=== PATIENT | female | born 1955 ===

== ENCOUNTER 2020-08-05 13:44 | Inpatient (IN) | payer OTHER, SELFPAY ==
[2020-08-05] VITALS (24 sets, daily range): BP systolic 79–128; BP diastolic 42–94; PULSE 93–113; RESP 16–42; TEMP 36–37.1; O2SAT 94–100
--- NOTE | ~2020-08-05 | CT_ITS ---
EXAMINATION: CT brain wo con DATE: 08/05/2020 14:51 INDICATION: Altered mental status. Unresponsive. TECHNIQUE: Computed tomography (CT) of the head was performed without intravenous contrast. Sagittal and coronal reconstructions were performed. The mA was adjusted according to patient size. Iterative reconstruction technique was employed. The dose-length product was 1210.67 mGy-cm. COMPARISON: None FINDINGS: Evaluation mildly limited by streak artifact along the skull base on both the initial and repeat at i mages. No acute intracranial hemorrhage, acute infarction or abnormal extra axial fluid collection. T here is mild scattered white matter hypoattenuation consistent with chronic small vessel ischemic dis ease. Ventricles are normal and symmetric. No mass/mass effect. Mild mucosal thickening in the bilate ral maxillary and ethmoid sinuses with likely mucous retention cyst in the left maxillary sinus. The orbits and mastoid air cells are normal. IMPRESSION: 1. No acute intracranial process. Evaluation is mildly limited at the level of the skull base due to streak artifact. 2. Mild scattered white matter hypoattenuation consistent with chronic small vessel ischemic disease. Reviewed, dictated and finalized at location A. ATOLOGICAL SURGEON IMPRESSION: 1. No acute intracranial process. Evaluation is mildly limited at the level of the skull base due to streak artifact. 2. Mild scattered white matter hypoattenuation consistent with chronic small ve ssel ischemic disease.
--- NOTE | ~2020-08-05 | XR_ITS ---
EXAMINATION: XR chest PICC line DATE: 08/06/2020 20:32 INDICATION: Central line placement. TECHNIQUE: A single frontal view of the chest was obtained. COMPARISON: Chest single view 08/05/2020, chest CT 08/05/2020 FINDINGS: The patient is rotated to her left. There is a diffuse interstitial pattern in the lungs, c onsistent with mild pulmonary edema. There is a large loculated left pleural effusion. There are airs pace opacities in all left lung zones. No pneumothorax. The heart size is normal. A left upper extrem ity peripherally inserted central venous catheter (PICC) is seen with tip at the superior cavoatrial junction. A TIPS is noted. IMPRESSION: 1. PICC tip at the superior cavoatrial junction. 2. Mild pulmonary edema. 3. Large loculated left pleural effusion. 4. Worsened airspace opacities in left lung, consistent with atelectasis versus pneumonia. Reviewed, dictated and finalized at location A. GER DENTAL
--- NOTE | ~2020-08-05 | XR_ITS ---
EXAMINATION: [id number] DATE: 08/08/2020 17:10 INDICATION: Status post thoracentesis TECHNIQUE: frontal view of the chest was obtained. COMPARISON: Chest radiograph dated 08/07/2020 FINDINGS: Left upper extremity peripherally inserted central venous catheter (PICC) which extends from the left brachiocephalic vein into the right brachiocephalic vein with distal tip near the confluence of the right internal jugular and subclavian veins. There is a transjugular intrahepatic hepatic portosystem ic shunt (TIPS) in expected position projecting over the medial side of the right hemidiaphragm. Embo lization coils project over the epigastric region. Significant decrease in size of a now small loculated left pleural effusion with improved aeration of the left lung in the upper and lower lung zones. There is persistent consolidation in the left midlu ng zone. Perihilar and lower lung predominant groundglass opacities and increased interstitial patter n in the right lung consistent with mild to moderate pulmonary edema. No pneumothorax or right-sided pleural effusion. Heart size is normal. IMPRESSION: 1. Decreased size of a now small left pleural effusion with no pneumothorax post thoracentesis. 2. Persistent consolidation in the left midlung zone which could represent atelectasis or pneumonia. 3. Perihilar and lower lung predominant opacities in the right lung most likely mild to moderate ulna r edema with differential including pneumonia. 4. Distal tip of a left upper extremity PICC line remains in the right brachiocephalic vein. Could co nsider rapid saline flush to attempt to reposition the catheter tip in the superior vena cava. Reviewed, dictated and finalized at location A. CUTTER IMPRESSION: 1. Decreased size of a now small left pleural effusion with no pneumothorax pos t thoracentesis. 2. Persistent consolidation in the left midlung zone which could represent atel ectasis or pneumonia. 3. Perihilar and lower lung predominant opacities in the right lung most likely mild to moderate ulnar edema with differential including pneumonia. 4. Distal tip of a left upper extremity PICC line remains in the right brachioc ephalic vein. Could consider rapid saline flush to attempt to reposition the ca theter tip in the superior vena cava.
--- NOTE | ~2020-08-05 | US_ITS ---
EXAMINATION: US paracentesis abd w/image DATE: 08/07/2020 15:45 INDICATION: Ascites. TECHNIQUE: The skin was prepped and draped in sterile fashion. Under ultrasound guidance, 1% lidocain e was used for local anesthesia in right lower quadrant of the abdomen. The patient was combative and grabbed at the needle and removed the drape. FINDINGS: Ultrasound images demonstrate a large volume of ascites IMPRESSION: 1. Large volume of ascites. The paracentesis was aborted due to the patient's combativeness. Reviewed, dictated and finalized at location A. NT SERVICES ACCOUNT MANAGER IMPRESSION: 1. Large volume of ascites. The paracentesis was aborted due to the patient's c ombativeness.
--- NOTE | ~2020-08-05 | US_ITS ---
EXAMINATION: US thoracentesis DATE: 08/08/2020 17:10 INDICATION: pleural effusion TECHNIQUE: The skin was prepped and draped in sterile fashion. 1% lidocaine was used for local anesth esia. Under ultrasound guidance, a 5 Fr catheter with trochar was advanced into the left pleural effu beny. Fluid was aspirated. The catheter was removed, and a dressing was applied. There were no immedi ate complications. FINDINGS: Ultrasound images demonstrate a left pleural effusion and the catheter within the fluid. IMPRESSION: 1. Successful ultrasound-guided thoracentesis yielding 500 mL of sean-colored fluid. Reviewed, dictated and finalized at location A. ION WORKER
--- NOTE | ~2020-08-05 | XR_ITS ---
EXAMINATION: XR chest 1V portable DATE: 08/05/2020 14:24 INDICATION: Transient alteration of awareness TECHNIQUE: frontal view of the chest was obtained. COMPARISON: None FINDINGS: There is opacification of the upper half of the left hemithorax with blunting at the costophrenic ang le and additional opacities at the periphery of the left lower lung zone where there is residual aera montserrat portions of left lung. The left mediastinal and heart borders are obscured. No midline shift of t he trachea. Right lung remains clear with no focal airspace opacities, pulmonary edema, pleural effus ion or pneumothorax. IMPRESSION: 1. Extensive opacification of the left hemithorax with some residual aerated lung in the left lower l milton zone. The distribution would be unusual to be accounted for solely by a pleural effusion and rais es concern for mass or pneumonia in the opacified left upper lung and with at least a small and poten tially larger associated left pleural effusion. Consider contrast-enhanced chest CT for further evalu ation and diagnostic thoracentesis. Reviewed, dictated and finalized at location A. ENTARY SCHOOL READING TEACHER IMPRESSION: 1. Extensive opacification of the left hemithorax with some residual aerated joe ng in the left lower lung zone. The distribution would be unusual to be account ed for solely by a pleural effusion and raises concern for mass or pneumonia in the opacified left upper lung and with at least a small and potentially larger associated left pleural effusion. Consider contrast-enhanced chest CT for furt her evaluation and diagnostic thoracentesis.
--- NOTE | ~2020-08-05 | XR_ITS ---
XR chest 1V portable DATE: 08/07/2020 06:17 INDICATION: Pleural effusion TECHNIQUE: Portable AP chest on 08/07/2020 at 0606 hours COMPARISON: Portable AP chest on 07/29/2020 at 2030 hours FINDINGS: There is nearly complete opacification of the left hemithorax and mild leftward shift of th e heart and mediastinum. There is right pulmonary vascular congestion and redistribution. There is diffuse interstitial promi nence of the right lung, which may be secondary to interstitial edema or pneumonitis. No right pleur al effusion. TIPS is noted. Left upper extremity PIC catheter in right brachiocephalic vein. Diffuse osteopenia. IMPRESSION: Persistent nearly complete opacification of left hemithorax with leftward shift of heart and mediastinum consistent with left lung atelectasis Diffuse interstitial infiltrate throughout the right lung, mildly improved since 07/29/2020 Reviewed, dictated and finalized at location A. NOCHEMIST IMPRESSION: Persistent nearly complete opacification of left hemithorax with le ftward shift of heart and mediastinum consistent with left lung atelectasis Diffuse interstitial infiltrate throughout the right lung, mildly improved sin e 07/29/2020
--- NOTE | ~2020-08-05 | CT_ITS ---
EXAMINATION:CT chest w con DATE: 08/05/2020 15:54 INDICATION: Pleural effusion. Altered mental status. TECHNIQUE: Computed tomography (CT) of the chest was performed with 75 mL Omnipaque 350 intravenous c ontrast. Automated exposure control and iterative reconstruction technique were employed. The dose-le ngth product (DLP) was 482.87 mGy-cm. COMPARISON: None. FINDINGS: Motion artifact is noted. There is mild emphysema. There are patchy groundglass opacities i n right upper lobe. There is smooth septal thickening in the lungs, consistent with mild pulmonary ed christiano. There is a small right pleural effusion. There is a large loculated left pleural effusion. There is passive atelectasis throughout left upper lobe and involving much of left lower lobe. The heart s ize is normal. The central pulmonary arteries are enlarged, consistent with pulmonary arterial hypert ension. There is a ruptured right breast implant. There is a left breast implant with intracapsular r upture. The liver demonstrates surface nodularity, consistent with cirrhosis. There is a TIPS in expe cted position. Calcifications in the liver and spleen are consistent with old granulomatous disease. There are embolization coils in the area of the left gastric artery. There is a gallstone in the gall bladder, which is normal in size. 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 There is a large volume of ascite s. There is widespread body wall edema. There is a catheter in the right external jugular vein. There is soft tissue gas in the right neck, likely from the IV placement. There is severe cervical spondyl osis and mild thoracic spondylosis. IMPRESSION: 1. Mild pulmonary edema. Groundglass opacities in right lung upper lobe may be pulmonary edema or pne umonia. 2. Small right pleural effusion and large loculated left pleural effusion. 3. Mild emphysema. 4. Cirrhosis of the liver. 5. Large volume of ascites. Reviewed, dictated and finalized at location A. EATION COUNSELOR IMPRESSION: 1. Mild pulmonary edema. Groundglass opacities in right lung upper lobe may be pulmonary edema or pneumonia. 2. Small right pleural effusion and large loculated left pleural effusion. 3. Mild emphysema. 4. Cirrhosis of the liver. 5. Large volume of ascites.
--- NOTE | ~2020-08-05 | US_ITS ---
EXAMINATION: US paracentesis abd w/image DATE: 08/08/2020 17:07 INDICATION: Ascites. TECHNIQUE: The skin was prepped and draped in sterile fashion. 1% lidocaine was used for local anesth esia. Under ultrasound guidance, a 5 Fr catheter with trochar was advanced into the ascites in the ri [facility] lower quadrant. Fluid was aspirated. The catheter was removed, and a dressing was applied. There were no immediate complications. FINDINGS: Ultrasound images demonstrate ascites and the catheter within the fluid. IMPRESSION: 1. Successful ultrasound-guided paracentesis yielding 3100 mL of sean-colored fluid. Reviewed, dictated and finalized at location A. PREPARATION SUPERVISOR
--- NOTE | 2020-08-05 13:36 | ED.AMS ---
HPI - Altered Mental Status General Chief Complaint: Altered Mental Status Stated Complaint: UNRESPONSIVE,GURGLING Source: EMS Mode of arrival: EMS Limitations: clinical condition History of Present Illness HPI narrative: Patient is a 64-year-old female with a history of cirrhosis who presents via EMS for altered mental status. Apparently, patient family found her unresponsive at home, thus EMS was called. She was noted to have gurgling respirations, hypotensive in route. An EJ was placed, patient was given a 1 L fluid bolus with minimal improvement in her blood pressure. No focal deficits, however patient is not awake, alert or oriented. She has anasarca throughout, she has abdominal ascites. Bedside glucose at our facility is 36. History cannot be obtained due to patient being unresponsive. Related Data Home Medications Medication Instructions Recorded Confirmed Unable to Obtain Home Medications 08/05/20 08/05/20 Allergies Allergy/AdvReac Type Severity Reaction Status Date / Time Unable to Assess Allergy Verified 08/05/20 15:36 Review of Systems Review of Systems: ROS unobtainable: Yes unobtainable due to mental status PMFSH Past Medical History Medical History (Updated 08/05/20 @ 17:22 by Lubna Holbrook MD) Cirrhosis Hepatitis C Surgical History Surgical History (Updated 08/05/20 @ 15:57 by Lubna Holbrook MD) H/O resection of liver Exam Narrative: Exam Narrative: GENERAL: Eyes are intermittently open, not following commands HEAD: Normocephalic, atraumatic. EYES: 2+ PERRLA and EOMI. ENT: Nares clear, no rhinorrhea or epistaxis. Mucous membranes dry. NECK: Supple. CHEST: Tachypneic, gurgling respirations, crackles bilaterally HEART: Tachycardic rate, sinus rhythm ABDOMEN: Distended with fluid wave EXTREMITIES: Normal range of motion. No edema. SKIN: Anasarca throughout NEURO: GCS 9-10. Moving all extremities spontaneously. No focal deficits. Strength is 5 out of 5 in the upper and lower extremities bilaterally. Not able to follow commands. Able to state her name. Course Vital Signs Vital signs: Vital Signs Temperature 36.9 C 08/05/20 13:39 Pulse Rate 113 H 08/05/20 13:39 Respiratory Rate 36 H 08/05/20 13:39 Blood Pressure 79/47 L 08/05/20 13:39 Pulse Oximetry 94 08/05/20 13:39 Temperature 36.9 C 08/05/20 13:39 Pulse Rate 100 08/05/20 17:31 Respiratory Rate 40 H 08/05/20 17:31 Blood Pressure 92/58 L 08/05/20 17:31 Pulse Oximetry 97 08/05/20 17:31 MDM - Altered Mental Status MDM Narrative Medical decision making narrative: Patient presented for evaluation of altered mental status, decreased responsiveness. The time of assessment, patient is hypotensive, tachycardic, tachypneic, hypoxic. Patient noted to be hypoglycemic, thus IV was placed, and patient was given IV dextrose amp. Repeat glucose had normalized. Concern for sepsis, patient was given a 30 mL/kg fluid bolus, started on broad-spectrum antibiotics. Patient is protecting her airway, hypoxia improved with patient on 2 L via nasal cannula. Hypotension improved after fluid bolus. Laboratory results notable for numerous abnormalities. Labs consistent with sepsis with significant leukocytosis and lactic acidosis. Patient is anemic. No thrombocytopenia. Patient is coagulopathic with INR 2.0. She has acute kidney injury. No UTI. No acute intracranial abnormalities. Chest x-ray concerning for left-sided pneumonia, pleural effusion, CT scan consistent with what seems to be pneumonia and loculated pleural effusion. I called over to [facility] after speaking with numerous family members regarding the patient's history of medical problems. I talked to the hepatic fellow at [facility], patient's INR is nearly at baseline. Her hemoglobin is typically 7.5-8 per last lab draw at their facility. She usually gets therapeutic paracentesis is at that facility, but h
--- NOTE | 2020-08-05 13:44 | ECG_ITS ---
Measurements Intervals [place] Rate: 110 P: 99 NE: 160 QRS: 104 QRSD: 72 T: -4 QT: 327 QTc: 443 Interpretive Statements SINUS TACHYCARDIA ARM LEADS REVERSED LOW VOLTAGE- PRECORDIAL LEADS ANTEROSEPTAL INFARCT, AGE INDETERMINATE BORDERLINE ST-T WAVE ABNORMALITY- INFERIOR LEADS BASELINE ARTIFACT- III, AVL, V1-V3 ABNORMAL ECG Electronically Signed On 08-08-2020 12:05:47 MANAGER AEROSPACE by Girish Barron D.O.
[2020-08-05] MEDS: DEXTROSE 50% 25 GM/50 ML SYRINGE (13:45)
[2020-08-05] MEDS: DEXTROSE 10% 500 ML 999 ML (14:04)
[2020-08-05] MEDS: SODIUM CHLORIDE 0.9% IV 1,000 ML 999 ML IV CONT (14:07)
[2020-08-05 14:17] LABS: Glucose Point of Care 175 (65-105)
[2020-08-05] MEDS: GLUCAGON FOR INJ 1 MG VIAL IM (14:26)
[2020-08-05] MEDS: THIAMINE HCL 200 MG/2 ML VIAL 100 MG IV PUSH (14:28)
[2020-08-05 14:29] LABS: Base Excess ABG -8.4 mEq/l (+/-2.0); Fractional Inspired Oxygen 30 %; HCO3 ABG 16.6 mEq/l (22.0-26.0); Oxygen Content ABG 10.1 %vol (16.0-22.0); Oxygen Saturation ABG 95.4 % (95.0-100.0); Oxyhemoglobin 93.1 % THb (90.0-100.0); PCO2 ABG 32.3 mmHg (35.0-45.0)
[2020-08-05] MEDS: NALOXONE HCL INJ 2 MG/2 ML AMP IV PUSH (14:29)
[2020-08-05 14:31] LABS: Device NASAL CANNULA; Liters per Minute 2.5 LPM; Site Drawn LEFT BRACHIAL; Total Hemoglobin 7.6 g/dL (12.0-18.0)
[2020-08-05 14:33] LABS: Hematocrit 23.1 % (37.0-47.0); Hemoglobin 7.4 g/dL (12.0-15.0); Platelet Count Result 174 k/mm3 (150-375); Red Blood Count 2.31 M/mm3 (4.2-5.4); Red Cell Distribution Width 19.9 % (11.5-14.5); White Blood Count 28.4 K/mm3 (4.5-10.0)
[2020-08-05 14:39] LABS: Prothrombin Time 23.2 Seconds (11.1-14.7)
[2020-08-05 14:40] LABS: Partial Thromboplastin Time 36.9 SECONDS (22.3-36.8)
[2020-08-05 14:41] LABS: Acetaminophen < 10 ug/mL (10-30); Ammonia 21 umol/L (9-30); Ethanol < 10 mg/dL (<10); Salicylate < 1.0 mg/dL (2-20)
[2020-08-05 14:42] LABS: Lactic Acid Reflex 6.6 mmol/L (0.7-2.1); Potassium 3.8 mmol/L (3.4-5.0)
[2020-08-05 14:44] LABS: Band Neutrophils Percent 2 % (0-6); Hypochromasia 2+ (NORMAL); Lymphocytes Absolute Manual 0.28 K/mm3 (1.1-4.5); Monocytes Absolute Manual 3.69 K/mm3 (0.1-0.90); Monocytes Percent Manual 13 % (3-9); Neutrophils Absolute Manual 24.42 K/mm3 (1.7-7.2); Neutrophils Percent Manual 84 % (46-73); Platelet Estimate Adequate (Adequate); Total Cells Counted 100
[2020-08-05 14:45] LABS: Alkaline Phosphatase 85 U/L (38-126); Anion Gap 12 mmol/L (8-16); Aspartate Amino Transferase 48 U/L (14-36); Bilirubin,Total 1.7 mg/dL (0.2-1.3); Blood Urea Nitrogen 27 mg/dL (7-17); Calcium 7.3 mg/dL (8.4-10.2); Carbon Dioxide 18 mmol/L (22-30); Chloride 103 mmol/L (98-107); Estimated Glomerular Filt Rate 30; Glucose 43 mg/dL (65-105); Sodium 133 mmol/L (137-145)
--- NOTE | 2020-08-05 14:45 | PC.NURSE ---
Pt to CT via stretcher. Pt opens eyes to her name but otherwise is nonresponsive.
[2020-08-05 14:51] LABS: Alanine Aminotransferase 26 U/L (4-35)
[2020-08-05 15:25] LABS: Glucose Point of Care 181 (65-105)
--- NOTE | 2020-08-05 15:29 | PC.NURSE ---
Called lab to add on BNP
--- NOTE | 2020-08-05 15:32 | PC.NURSE ---
Pt to CT via stetcher for CTA. Pt making spontaneous movements of extremities, occasionally yelling out unintelligible words. Attempt to redirect patient.
[2020-08-05 15:43] LABS: Add Urine Microscopic? YES; Appearance Urine Clear (Clear); Bacteria Urine Trace /hpf; Bilirubin Urine Negative (Negative); Blood Urine Negative (Negative); Color Urine Yellow (Yellow); Glucose Urine UA Negative (Negative); Ketones Urine Negative (Negative); Leukocyte Esterase Ur Negative LEU/UL (Negative); Mucus Urine Rare /lpf; Nitrate Urine Negative (Negative); Protein Urine Negative (Negative); RBC Urine 0-2 /hpf (0-2); Specific Grav Ur 1.018 (1.001-1.035); Squamous Epithelial Cell Urine Occasional /hpf (Few); WBC Urine 0-3 /hpf
[2020-08-05 15:48] LABS: NT Pro B Type Natriuretic Pept 5600 PG/ML (5-100)
[2020-08-05 15:57] LABS: Amphetamine Screen Urine Negative (Negative); Barbiturate Screen Urine Negative (Negative); Benzodiazepines Screen Urine Negative (Negative); Cannabinoid Screen Urine Negative (Negative); Cocaine Screen Urine Negative (Negative); Methadone Screen Urine Negative (Negative); Opiate Screen Urine Negative (Negative); Phencyclidine Screen Urine Negative (Negative)
--- NOTE | 2020-08-05 16:30 | PM.IMHP ---
H&P: HPI History of Present Illness Date/Time: 08/05/20 16:30. The patient was seen and evaluated in the emergency department. Chief complaint: Unresponsive. Narrative: Venancio Li is a 64-year-old female who presented to the emergency department earlier today via EMS from a local residence after she was found unresponsive. Unfortunately, the patient has not ever been seen at this facility before and receives all of her care elsewhere. I have been unable to get a hold of any family members for information and as such all of the following is obtained via a review of her electronic medical records as well as discussions with the nursing staff. According to the triage note, the patient was found unresponsive and ?gurgling? just prior to arrival. She was hypoglycemic and hypotensive in the EDl with concerns for sepsis, etiology of which is not entirely clear at this time. Blood pressures have remained stable with no need for vasopressors at this time. She is alert at the time my evaluation but just grunts when asked questions. She does not follow commands. Review of Systems Review of Systems: Narrative: A review of systems is unable to be obtained given her current clinical condition as detailed above. [facility] Past Medical History Medical History (Updated 08/05/20 @ 20:16 by Osiris Nielsen PA-C) Cirrhosis Hepatitis C Surgical History Surgical History (Updated 08/05/20 @ 20:10 by Osiris Nielsen PA-C) History of resection of liver Family History Family History (Updated 08/05/20 @ 20:10 by Osiris Nielsen PA-C) Other Unknown family medical history Social History Social History (Updated 08/05/20 @ 20:11 by Osiris Nielsen PA-C) Social History: The patient has a [place] address. No emergency contact information is in the chart. Meds Home Medications and Allergies Home Medications Medication Instructions Recorded Confirmed Type Unable to Obtain Home Medications 08/05/20 08/05/20 History Allergies Allergy/AdvReac Type Severity Reaction Status Date / Time Unable to Assess Allergy Verified 08/05/20 15:36 Vital Signs Vital Signs - 24 hr 08/05/20 13:39 08/05/20 13:45 08/05/20 14:31 Temperature 98.5 F Pulse Rate 113 H 113 H 111 H Respiratory Rate 36 H 42 H 36 H Blood Pressure 79/47 L 97/59 L Pulse Oximetry 94 94 97 08/05/20 15:08 08/05/20 15:20 08/05/20 15:48 Temperature Pulse Rate 107 H 111 H 105 H Respiratory Rate 36 H 40 H 35 H Blood Pressure 102/59 L Pulse Oximetry 97 98 08/05/20 16:00 08/05/20 16:12 08/05/20 16:15 Temperature Pulse Rate 104 H 102 H Respiratory Rate 32 H 24 H Blood Pressure 128/94 H Pulse Oximetry 94 99 08/05/20 16:16 08/05/20 16:35 08/05/20 16:46 Temperature Pulse Rate 102 H 103 H 100 Respiratory Rate 26 H 35 H 33 H Blood Pressure 101/57 L 92/60 L Pulse Oximetry 94 98 08/05/20 16:51 08/05/20 17:01 08/05/20 17:17 Temperature Pulse Rate 101 H 101 H 100 Respiratory Rate 30 H 34 H 25 H Blood Pressure 84/58 L 94/68 L Pulse Oximetry 97 98 08/05/20 17:31 08/05/20 19:42 Temperature Pulse Rate 100 96 Respiratory Rate 40 H 16 Blood Pressure 92/58 L 113/62 Pulse Oximetry 97 100 Exam Narrative: Exam Narrative: General: Acutely ill-appearing female supine in bed. Weight: 74.7 kg. BMI: 20.3. HEENT: Pupils are 3 mm and are sluggishly reactive. Sclerae anicteric. Conjunctiva mildly injected. Oral mucosa appears dry. Oral exam not performed she would not open her mouth. Neck: Supple. No nuchal rigidity. No obvious JVD or bruits however exam is difficult due to the patient's positioning and lack of cooperation. Respiratory: Mildly tachypneic. Audible wheezes with significantly diminished breath sounds throughout the left lung field. Cardiovascular: Regular rate and rhythm with S1-S2. No obvious murmur but difficult to auscultate given over shadowing lung sounds. Gastrointestinal:
[2020-08-05 17:25] LABS: Reflex Lactic Acid Yes or No Add Lactic
--- NOTE | 2020-08-05 17:38 | PC.NURSE ---
Pt's son arrives, updated on patient condition. To bedside. Pt appears to look at patient but doesn't appear to focus and does not seem to recognize him.
[2020-08-05] MEDS: ALBUMIN HUMAN 25% 25 GM/100 ML 100 ML IVPB (17:42)
--- NOTE | 2020-08-05 18:36 | PC.NURSE ---
[address] per Dr. Gonzalez and Dr. Holbrook for patient's thoracentesis.
--- NOTE | 2020-08-05 19:10 | PC.NURSE ---
Multiple staff at bedside to attempt to collect lactic acid and verification tube, all unsuccessful. Note skin tears and skin leaking under blood pressure cuff to left wrist. Moved to pt's right wrist.
[2020-08-05 19:45] LABS: Glucose Point of Care 106 (65-105)
[2020-08-05 20:04] LABS: Lactic Acid 5.3 mmol/L (0.7-2.1)
[2020-08-05 20:16] LABS: Troponin I 0.185 ng/mL (0.000-0.034)
[2020-08-05 21:12] LABS: Anion Gap 10 mmol/L (8-16); Blood Urea Nitrogen 29 mg/dL (7-17); Carbon Dioxide 18 mmol/L (22-30); Chloride 103 mmol/L (98-107); Creatine Kinase 509 U/L (30-135); Estimated CRCL calculation 34 ml/min; Estimated Glomerular Filt Rate 35; Glucose 121 mg/dL (65-105); Sodium 131 mmol/L (137-145)
[2020-08-05] MEDS: metroNIDAZOLE 500 MG/ISO 100ML 500 MG/100 ML BAG 100 MG IVPB (21:36)
[2020-08-05] MEDS: TUBING, BLOOD PLUM PUMP TUBING 1 EACH XX (21:37)
[2020-08-05 22:24] LABS: Free T4 Free Thyroxine Reflex 1.54 ng/dL (0.78-2.19)
[2020-08-05 23:16] LABS: Total Triiodothyronine (T3) 0.49 NG/ML (0.97-1.69)
[2020-08-05 23:21] LABS: Glucose Point of Care 101 (65-105)
[2020-08-06] VITALS (16 sets, daily range): BP systolic 84–150; BP diastolic 44–77; PULSE 89–100; RESP 18–33; TEMP 36–36.9; O2SAT 94–100
[2020-08-06 00:21] LABS: Troponin I 0.148 ng/mL (0.000-0.034)
[2020-08-06 01:35] LABS: Glucose Point of Care 96 (65-105)
--- NOTE | 2020-08-06 01:52 | ADMGEN ---
This patient, Venancio Li, was admitted to IMU Room 231-01 at 0055. Patient/family oriented to hospital policies and general routines including ID bracelet, bed and alarms, visiting hours, pain management, procedures, bathroom and other care routines, personal items, smoking policy, room service/diet, and visiting hours. Information on how to activate the Rapid Response Team has been discussed. Patient/Family are encouraged to report perceived risks to care and to ask questions if they do not understand what they are told or what they should do.
[2020-08-06 06:57] LABS: Glucose Point of Care 77 (65-105)
[2020-08-06 07:17] LABS: Prothrombin Time 23.6 Seconds (11.1-14.7)
[2020-08-06 07:18] LABS: Basophils Absolute Auto 0.1 K/mm3 (0.0-0.1); Basophils Percent Auto 0.2 % (0.2-1.2); Immature Granulocyte Percent A 2.5 % (0-0.5); Lymphocytes Absolute Auto 0.51 K/mm3 (0.9-3.2); Lymphocytes Percent Auto 1.6 % (18.3-44.2); Mean Corpuscular HGB Conc 31.4 g/dl (32-36); Mean Corpuscular Hemoglobin 31.3 pg (26-34); Mean Corpuscular Volume 99.5 fl (80-100); Mean Platelet Volume 9.3 fl (7.4-10.4); Monocytes Absolute Auto 2.6 K/mm3 (0.1-0.6); Monocytes Percent Auto 8.3 % (2.6-8.5); Neutrophils Absolute Auto 27.6 K/mm3 (1.3-6.7); Neutrophils Percent Auto 87.4 % (45.5-73.1); Partial Thromboplastin Time 38.6 SECONDS (22.3-36.8); Platelet Count Result 164 k/mm3 (150-375); Red Blood Count 2.08 M/mm3 (4.2-5.4); Red Cell Distribution Width 19.7 % (11.5-14.5); White Blood Count 31.6 K/mm3 (4.5-10.0)
[2020-08-06 07:25] LABS: Lactic Acid Reflex 3.4 mmol/L (0.7-2.1)
[2020-08-06 07:27] LABS: Alanine Aminotransferase 31 U/L (4-35); Albumin Level 2.4 g/dL (3.5-5.1); Alkaline Phosphatase 77 U/L (38-126); Anion Gap 9 mmol/L (8-16); Aspartate Amino Transferase 95 U/L (14-36); Bilirubin,Total 1.7 mg/dL (0.2-1.3); Blood Urea Nitrogen 31 mg/dL (7-17); Calcium 7.4 mg/dL (8.4-10.2); Carbon Dioxide 20 mmol/L (22-30); Chloride 104 mmol/L (98-107); Estimated CRCL calculation 34 ml/min; Estimated Glomerular Filt Rate 35; Glucose 77 mg/dL (65-105); Magnesium 1.7 mg/dL (1.6-2.3); Phosphorus 4.5 mg/dL (2.5-4.5); Potassium 4.2 mmol/L (3.4-5.0); Sodium 133 mmol/L (137-145)
--- NOTE | 2020-08-06 08:23 | WPDCNINT ---
Assessment and Plan Assessment and plan (1) Septic shock: Code(s): A41.9 - Sepsis, unspecified organism; R65.21 - Severe sepsis with septic shock Status: Acute Assessment and Plan: Due to pneumonia (cannot rule out empyema) and or peritonitis. Blood cultures pending. Given presence of pneumonia patient has been swabbed for COVID testing. But COVID less likely given the patient's leukocytosis. Patient would benefit from a diagnostic and therapeutic paracentesis however, IR will not perform paracentesis with patient's INR 2. Vitamin K and FFP have been ordered. Thoracentesis would also be beneficial for both diagnostic and therapeutic purposes. The patient's blood pressures have improved with albumin and fluid resuscitation. She is no longer hypotensive. Continue broad-spectrum antibiotic with cefepime and Levaquin. (2) Cirrhosis of liver with ascites: Qualifiers: Hepatic cirrhosis type: unspecified hepatic cirrhosis Qualified Code(s): K74.60 - Unspecified cirrhosis of liver; R18.8 - Other ascites Code(s): K74.60 - Unspecified cirrhosis of liver; R18.8 - Other ascites Status: Acute Assessment and Plan: Due to hepatitis-C with evidence of synthetic dysfunction. Patient received 1 unit of albumin yesterday. (3) Coagulopathy: Code(s): D68.9 - Coagulation defect, unspecified Status: Acute Assessment and Plan: The patient's INR hours as her baseline. However intervention radiology will not perform paracentesis or thoracentesis on the patient with her elevated INR. Will attempt to give patient 10 mg vitamin K subq and another unit of FFP. (4) Loculated pleural effusion: Code(s): J90 - Pleural effusion, not elsewhere classified Status: Acute Assessment and Plan: Due to cirrhosis versus underlying pneumonia or neoplastic process uncertain. Diagnostic and therapeutic thoracentesis has been ordered. (5) Hypoglycemia: Code(s): E16.2 - Hypoglycemia, unspecified Status: Acute Assessment and Plan: Currently resolved. Continue to monitor Accu-Cheks q.6 hours old p.o. with hypoglycemia protocol. (6) Anemia: Qualifiers: Anemia type: other cause Other causes of anemia: chronic disease, other Qualified Code(s): D63.8 - Anemia in other chronic diseases classified elsewhere Code(s): D64.9 - Anemia, unspecified Status: Acute Assessment and Plan: Her hemoglobin has dropped 1 g after volume resuscitation. Transfused 2 units of packed red blood cells. (7) Hypothyroidism: Qualifiers: Hypothyroidism type: acquired Qualified Code(s): E03.9 - Hypothyroidism, unspecified Code(s): E03.9 - Hypothyroidism, unspecified Status: Acute Assessment and Plan: Patient is not on thyroid medications at home. Will initiate IV levothyroxine 25 mcg daily. (8) Lactic acidosis: Code(s): E87.2 - Acidosis Status: Acute Assessment and Plan: Lactic acidosis likely multifactorial due to liver disease and septic shock. Lactic acid level is continuing to improve. (9) Elevated troponin: Code(s): R77.8 - Other specified abnormalities of plasma proteins Status: Acute Assessment and Plan: Likely due to type 2 infarct from septic shock. Troponin trending downward. (10) Acute kidney injury: Code(s): N17.9 - Acute kidney failure, unspecified Status: Acute Assessment and Plan: Likely due to ATN from septic shock. Creatinine has improved slightly. Continue to monitor urine output closely. Additional Plan 45 minutes spent in critical care activities. This case had a high probability of a clinically significant, sudden, or life threatening deterioration of this patient's condition which required my full and direct attention, intervention and personal management. Forensic Specialist Consult Note Consult date: 08/06/20 Time Seen:
[2020-08-06 08:56] LABS: Hematocrit 20.7 % (37.0-47.0); Hemoglobin 6.5 g/dL (12.0-15.0)
[2020-08-06 10:04] LABS: Reflex Lactic Acid Yes or No Add Lactic
[2020-08-06 10:52] LABS: Lactic Acid 2.6 mmol/L (0.7-2.1)
[2020-08-06] MEDS: GLUCOSE ORAL GEL 15 GM OF GLUCSE IN 37.5 GM TUBE PO ×2 (12:23→12:49)
[2020-08-06] MEDS: MIDODRINE HCL 10 MG TABLET PO (12:24)
[2020-08-06] MEDS: LACTULOSE 20 GM/30 ML UDC 6.667 GM PO (12:24)
[2020-08-06] MEDS: SODIUM CHLORIDE 0.9% IV 250 ML 30 ML IV CONT (12:26)
[2020-08-06] MEDS: PANTOPRAZOLE SODIUM IV 40 MG VIAL IV PUSH (12:38)
[2020-08-06 13:43] LABS: SARS-CoV-2 RNA PCR Negative
[2020-08-06 13:57] LABS: Glucose Point of Care 74 (65-105)
[2020-08-06 13:57] LABS: Glucose Point of Care 59 (65-105)
[2020-08-06 13:57] LABS: Glucose Point of Care 68 (65-105)
[2020-08-06 16:17] LABS: Glucose Point of Care 81 (65-105)
--- NOTE | 2020-08-06 17:55 | PM.IMPN ---
Progress Note: A&P Assessment and Plan (1) Septic shock: Code(s): A41.9 - Sepsis, unspecified organism; R65.21 - Severe sepsis with septic shock Status: Acute Assessment and Plan: Due to pneumonia (cannot rule out empyema) and or peritonitis. Blood cultures pending. Given presence of pneumonia patient has been swabbed for COVID testing. But COVID less likely given the patient's leukocytosis. Patient would benefit from a diagnostic and therapeutic paracentesis however, IR will not perform paracentesis with patient's INR 2. Vitamin K and FFP have been ordered. Thoracentesis would also be beneficial for both diagnostic and therapeutic purposes. The patient's blood pressures have improved with albumin and fluid resuscitation. She is no longer hypotensive. Continue broad-spectrum antibiotic with cefepime and Levaquin. 08/06/20 17:55 patient is 64-year-old female was found by her family unresponsive unfortunately patient still is unable to provide any history review of symptom and patient is stable been to this facility so we have no record of past medical history it seems patient has a liver cirrhosis and ascites her INR was 2 and cannot have paracentesis, is also found to have pleural effusion and again patient cannot have thoracentesis, patient was found to be anemic hemoglobin 6.5 patient is given 2 units of pack RBC and will monitor, patient is quite somnolent unable to response to verbal stimuli, patient seen by chef teacher and appreciate (2) Cirrhosis of liver with ascites: Qualifiers: Hepatic cirrhosis type: unspecified hepatic cirrhosis Qualified Code(s): K74.60 - Unspecified cirrhosis of liver; R18.8 - Other ascites Code(s): K74.60 - Unspecified cirrhosis of liver; R18.8 - Other ascites Status: Acute Assessment and Plan: Due to hepatitis-C with evidence of synthetic dysfunction. Patient received 1 unit of albumin yesterday. (3) Coagulopathy: Code(s): D68.9 - Coagulation defect, unspecified Status: Acute Assessment and Plan: The patient's INR hours as her baseline. However intervention radiology will not perform paracentesis or thoracentesis on the patient with her elevated INR. Will attempt to give patient 10 mg vitamin K subq and another unit of FFP. (4) Loculated pleural effusion: Code(s): J90 - Pleural effusion, not elsewhere classified Status: Acute Assessment and Plan: Due to cirrhosis versus underlying pneumonia or neoplastic process uncertain. Diagnostic and therapeutic thoracentesis has been ordered. (5) Hypoglycemia: Code(s): E16.2 - Hypoglycemia, unspecified Status: Acute Assessment and Plan: Currently resolved. Continue to monitor Accu-Cheks q.6 hours old p.o. with hypoglycemia protocol. (6) Anemia: Qualifiers: Anemia type: other cause Other causes of anemia: chronic disease, other Qualified Code(s): D63.8 - Anemia in other chronic diseases classified elsewhere Code(s): D64.9 - Anemia, unspecified Status: Acute Assessment and Plan: Her hemoglobin has dropped 1 g after volume resuscitation. Transfused 2 units of packed red blood cells. (7) Hypothyroidism: Qualifiers: Hypothyroidism type: acquired Qualified Code(s): E03.9 - Hypothyroidism, unspecified Code(s): E03.9 - Hypothyroidism, unspecified Status: Acute Assessment and Plan: Patient is not on thyroid medications at home. Will initiate IV levothyroxine 25 mcg daily. (8) Lactic acidosis: Code(s): E87.2 - Acidosis Status: Acute Assessment and Plan: Lactic acidosis likely multifactorial due to liver disease and septic shock. Lactic acid level is continuing to improve. (9) Elevated troponin: Code(s): R77.8 - Other specified abnormalities of plasma proteins Status: Acute Assessment and Plan: Likely due to type 2 infarct from septic
[2020-08-06] MEDS: CENTRAL LINE FLUSH 10 ML IV PUSH (21:38)
[2020-08-06] MEDS: TUBING, BLOOD PLUM PUMP TUBING 1 EACH XX (23:09)
[2020-08-06] MEDS: ALBUMIN HUMAN 25% 12.5 GM/50ML 50 ML IVPB (23:24)
[2020-08-07] VITALS (17 sets, daily range): BP systolic 90–138; BP diastolic 45–84; PULSE 78–97; RESP 18–24; TEMP 36–36.7; O2SAT 92–98
[2020-08-07 00:11] LABS: Glucose Point of Care 86 (65-105)
[2020-08-07] MEDS: CENTRAL LINE FLUSH 10 ML IV PUSH ×3 (03:42→21:11)
[2020-08-07] MEDS: ALBUMIN HUMAN 25% 12.5 GM/50ML 50 ML IVPB ×3 (04:35→20:24)
[2020-08-07] MEDS: LEVOTHYROXINE SODIUM INJ 100 MCG/5 ML VIAL 25 MCG IV PUSH (05:35)
[2020-08-07 07:01] LABS: Basophils Absolute Auto 0.1 K/mm3 (0.0-0.1); Basophils Percent Auto 0.3 % (0.2-1.2); Eosinophils Percent Auto 0.2 % (0-4.4); Hematocrit 25.7 % (37.0-47.0); Hemoglobin 8.3 g/dL (12.0-15.0); Immature Granulocyte Absolute 0.26 K/mm3 (0.00-0.031); Immature Granulocyte Percent A 1.2 % (0-0.5); Lymphocytes Absolute Auto 0.71 K/mm3 (0.9-3.2); Lymphocytes Percent Auto 3.2 % (18.3-44.2); Mean Corpuscular HGB Conc 32.3 g/dl (32-36); Mean Corpuscular Hemoglobin 31.6 pg (26-34); Mean Corpuscular Volume 97.7 fl (80-100); Mean Platelet Volume 9.3 fl (7.4-10.4); Monocytes Absolute Auto 1.8 K/mm3 (0.1-0.6); Monocytes Percent Auto 8.1 % (2.6-8.5); Neutrophils Absolute Auto 19.1 K/mm3 (1.3-6.7); Platelet Count Result 136 k/mm3 (150-375); Red Blood Count 2.63 M/mm3 (4.2-5.4); Red Cell Distribution Width 18.1 % (11.5-14.5)
[2020-08-07 07:15] LABS: INR 1.9; Prothrombin Time 22.1 Seconds (11.1-14.7)
[2020-08-07 07:16] LABS: Partial Thromboplastin Time 40.5 SECONDS (22.3-36.8)
[2020-08-07 07:18] LABS: Alanine Aminotransferase 32 U/L (4-35); Albumin Level 2.4 g/dL (3.5-5.1); Alkaline Phosphatase 64 U/L (38-126); Anion Gap 7 mmol/L (8-16); Aspartate Amino Transferase 73 U/L (14-36); Blood Urea Nitrogen 40 mg/dL (7-17); CRP 7.9 mg/dL (<1.0); Calcium 7.4 mg/dL (8.4-10.2); Carbon Dioxide 22 mmol/L (22-30); Chloride 104 mmol/L (98-107); Estimated CRCL calculation 32 ml/min; Estimated Glomerular Filt Rate 33; Glucose 76 mg/dL (65-105); Magnesium 1.9 mg/dL (1.6-2.3); Phosphorus 4.4 mg/dL (2.5-4.5); Potassium 3.9 mmol/L (3.4-5.0); Sodium 133 mmol/L (137-145)
[2020-08-07 07:54] LABS: Glucose Point of Care 115 (65-105)
[2020-08-07] MEDS: LACTULOSE 20 GM/30 ML UDC 6.667 GM PO ×3 (10:39→17:54)
[2020-08-07] MEDS: PANTOPRAZOLE SODIUM IV 40 MG VIAL IV PUSH (10:40)
--- NOTE | 2020-08-07 11:06 | WPDINTPN ---
Progress Note: A&P Assessment and Plan (1) Septic shock: Code(s): A41.9 - Sepsis, unspecified organism; R65.21 - Severe sepsis with septic shock Status: Acute Assessment and Plan: Due to pneumonia (cannot rule out empyema) and or peritonitis. Blood cultures positive for group B strep in both aerobic and anaerobic bottles COVID testing was negative Patient would benefit from a diagnostic and therapeutic paracentesis however, IR will not perform paracentesis with patient's INR 2. Vitamin K and FFP have been ordered. Thoracentesis would also be beneficial for both diagnostic and therapeutic purposes. The patient's blood pressures have improved with albumin and fluid resuscitation. She is no longer hypotensive. The patient is on broad-spectrum antibiotic with cefepime and Levaquin and vancomycin. Will narrow antibiotic coverage to cefepime and vancomycin. Awaiting bed placement at [facility]. The patient had been excepted by the ICU service and GI. Shock has since resolved the patient be transferred to the medical floor. (2) Cirrhosis of liver with ascites: Qualifiers: Hepatic cirrhosis type: unspecified hepatic cirrhosis Qualified Code(s): K74.60 - Unspecified cirrhosis of liver; R18.8 - Other ascites Code(s): K74.60 - Unspecified cirrhosis of liver; R18.8 - Other ascites Status: Acute Assessment and Plan: Due to hepatitis-C with evidence of synthetic dysfunction. Patient received 1 unit of albumin in the ER. The patient is on scheduled albumin for 48 hours. (3) Coagulopathy: Code(s): D68.9 - Coagulation defect, unspecified Status: Acute Assessment and Plan: The patient's INR hours as her baseline. However intervention radiology will not perform paracentesis or thoracentesis on the patient with her elevated INR. Will attempt to give patient 10 mg vitamin K subq and another unit of FFP. Repeat INR was 1.9. (4) Loculated pleural effusion: Code(s): J90 - Pleural effusion, not elsewhere classified Status: Acute Assessment and Plan: Due to cirrhosis versus underlying pneumonia or neoplastic process uncertain. Diagnostic and therapeutic thoracentesis has been ordered. (5) Hypoglycemia: Code(s): E16.2 - Hypoglycemia, unspecified Status: Acute Assessment and Plan: Currently resolved. Continue to monitor Accu-Cheks q.6 hours old p.o. with hypoglycemia protocol. (6) Anemia: Qualifiers: Anemia type: other cause Other causes of anemia: chronic disease, other Qualified Code(s): D63.8 - Anemia in other chronic diseases classified elsewhere Code(s): D64.9 - Anemia, unspecified Status: Acute Assessment and Plan: Her hemoglobin has dropped 1 g after volume resuscitation. Transfused 2 units of packed red blood cells 08/06/2020 with improvement in hemoglobin today to 8.3. (7) Hypothyroidism: Qualifiers: Hypothyroidism type: acquired Qualified Code(s): E03.9 - Hypothyroidism, unspecified Code(s): E03.9 - Hypothyroidism, unspecified Status: Acute Assessment and Plan: Patient is not on thyroid medications at home. Switch to levothyroxine 25 mcg p.o. (8) Lactic acidosis: Code(s): E87.2 - Acidosis Status: Acute Assessment and Plan: Lactic acidosis likely multifactorial due to liver disease and septic shock. Lactic acid level is continuing to improve. (9) Elevated troponin: Code(s): R77.8 - Other specified abnormalities of plasma proteins Status: Acute Assessment and Plan: Likely due to type 2 infarct from septic shock. Troponin trending downward. (10) Acute kidney injury: Code(s): N17.9 - Acute kidney failure, unspecified Status: Acute Assessment and Plan: Likely due to ATN from septic shock. Creatinine has improved slightly. Continue to monitor urine output david
[2020-08-07 12:41] LABS: Glucose Point of Care 146 (65-105)
--- NOTE | 2020-08-07 12:55 | PC.NURSE ---
This patient, Venancio Li, was transferred to [ [id number]] on 08/07/20 at 1256. Personal belongings sent with patient. Report given to [ Elinor HAMM]. Appropriate documentation sent with patient.
--- NOTE | 2020-08-07 13:43 | PM.TDS ---
Transfer Discharge Sum: Prov Provider Date of admission: 08/05/20 17:49 Primary care physician: UNKNOWN,DOCTOR Admitting clinician: Stan Stokes DO Consults: 08/05/20 16:47 Consult to Physician Routine Comment: Consulting Provider: Shahnaz Olsen Reason for consultation: ICU patient, septic shock Has provider been notified: Yes DS: Admitting Diagnosis Admitting Diagnosis Admitting Diagnosis: Septic Shock, Pneumonia, Anemia, AMS Transfer Discharge Sum: Med Medications Active and Home Medications: Home Medications cyclobenzaprine 10 mg HS 08/06/20 [History Confirmed 08/06/20] lactulose 10 ml PO TID 08/06/20 [History Confirmed 08/06/20] midodrine 10 mg PO TID 08/06/20 [History Confirmed 08/06/20] sulfamethoxazole-trimethoprim 1 tablet PO DAILY 08/06/20 [History Confirmed 08/06/20] Active Medications Albuterol (Albuterol Sulfate Neb 2.5 Mg/0.5 Ml Inh) 2.5 mg INHALATION Q6HRT [facility] Dextrose (Dextrose 50% 25 Gm/50 Ml Syringe) 12.5 gm IV PUSH PRN PRN; Protocol PRN Reason: Hypoglycemia Glucagon (Glucagon For Inj 1 Mg Vial) 1 mg IM PRN PRN; Protocol PRN Reason: Hypoglycemia Glucose (Glucose Oral Gel 15 Gm Of Glucse In 37.5 Gm Tube) 15 gm PO PRN PRN; Protocol PRN Reason: Hypoglycemia Last Admin: 08/06/20 12:49 Dose: 15 gm Documented by: Cefepime HCl (Maxipime 2 Gm/D5w 50 Ml) 2 gm in 50 mls @ 100 mls/hr IVPB Q12H [facility] Last Infusion: 08/07/20 06:08 Dose: Infused Documented by: Dextrose (Dextrose 5% 1,000 Ml) 1,000 mls @ 100 mls/hr IVPB PRN PRN; Protocol PRN Reason: Hypoglycemia Vancomycin HCl (Vancomycin 1,000 Mg/D5w 250 Ml) 1,000 mg in 250 mls @ 250 mls/hr IVPB Q36H [facility] Last Admin: 08/07/20 10:36 Dose: 250 mls/hr Documented by: Albumin Human (Albutein) 50 mls @ 50 mls/hr IVPB Q6HR [facility] Stop: 08/08/20 00:59 Last Admin: 08/07/20 12:28 Dose: 50 mls/hr Documented by: Lactulose (Lactulose 20 Gm/30 Ml Udc) 6.667 gm PO TID [facility] Stop: 09/05/20 09:01 Last Admin: 08/07/20 10:39 Dose: 6.667 gm Documented by: Levothyroxine Sodium (Levothyroxine Sodium 25 Mcg Tablet) 25 mcg PO DAILY@0630 [facility] Midodrine (Midodrine Hcl 10 Mg Tablet) 10 mg PO TID [facility] Last Admin: 08/07/20 10:46 Dose: Not Given Documented by: Pantoprazole Sodium (Pantoprazole Sodium Iv 40 Mg Vial) 40 mg IV PUSH QAM [facility] Last Admin: 08/07/20 10:40 Dose: 40 mg Documented by: Sodium Chloride (Central Line Flush) 10 ml IV PUSH Q8HR [facility] Last Admin: 08/07/20 03:42 Dose: 10 ml Documented by: Sodium Chloride (Central Line Flush) 10 ml IV PUSH PRN PRN PRN Reason: with TPN bag changes Sodium Chloride (Central Line Flush) 20 ml IV PUSH PRN PRN PRN Reason: after blood draws Trimethoprim/Sulfamethoxazole (Trimethoprim/Sulfamethoxazole 160-800 Mg Ds Tablet) 1 tab PO DAILY [facility] Last Admin: 08/07/20 10:47 Dose: Not Given Documented by: Transfer Discharge Sum: Hosp Hospital Course Hospital course: Venancio Li is a 64 year old female Time Spent with Patient Time attestation: Total time spent providing and/or coordinating transfer services: DS: Data Data Completed and Pending Pending studies at discharge: Pending at discharge 08/05/20 14:55 Cytology [PTH] Routine Labs on day of discharge: Labs from last 24 hours 08/07/20 08/07/20 08/07/20 12:19 07:06 06:46 WBC RBC Hgb Hct MCV MCH MCHC RDW Plt Count MPV Immature Gran % (Auto) Neut % (Auto) Lymph % (Auto) [place] % (Auto) Eos % (Auto) Baso % (Auto) Lymph # (Auto) [place] # (Auto) Eos # (Auto) Baso # (Auto) Abs Immat Gran (auto) Absolute Neuts (auto) Absolute Nucleated RBC Nucleated RBC % PT INR APTT Sodium 133 L Potassium 3.9 Chloride 104 Carbon Dioxide 22 Anion Gap 7 L BUN 40 H Creatinine 1.60 H Estim Creat Clear Calc 32 Estimated GFR 33 L Glucose 76 POC Capillary Glucose 146 H 115 H Calcium 7.4 L
[2020-08-07] MEDS: MIDODRINE HCL 10 MG TABLET PO ×2 (14:44→17:54)
[2020-08-07 18:16] LABS: Glucose Point of Care 82 (65-105)
[2020-08-07] MEDS: ALBUTEROL SULFATE NEB 2.5 MG/0.5 ML INH INHALATION (21:19)
[2020-08-07 23:54] LABS: Glucose Point of Care 73 (65-105)
[2020-08-08] VITALS (10 sets, daily range): BP systolic 105–111; BP diastolic 47–93; PULSE 54–91; RESP 16–32; TEMP 35.5–36.4; O2SAT 93–98
[2020-08-08] MEDS: ALBUTEROL SULFATE NEB 2.5 MG/0.5 ML INH INHALATION ×3 (01:46→17:53)
[2020-08-08] MEDS: ALBUMIN HUMAN 25% 12.5 GM/50ML 50 ML IVPB (02:04)
[2020-08-08 04:03] LABS: Estimated CRCL calculation 32 ml/min; Estimated Glomerular Filt Rate 33
[2020-08-08] MEDS: CENTRAL LINE FLUSH 10 ML IV PUSH ×3 (05:17→22:42)
[2020-08-08 06:37] LABS: Glucose Point of Care 77 (65-105)
[2020-08-08] MEDS: LACTULOSE 20 GM/30 ML UDC 6.667 GM PO (09:34)
[2020-08-08] MEDS: MIDODRINE HCL 10 MG TABLET PO (09:35)
[2020-08-08] MEDS: PANTOPRAZOLE SODIUM IV 40 MG VIAL IV PUSH (09:35)
[2020-08-08 11:56] LABS: Glucose Point of Care 89 (65-105)
[2020-08-08 12:03] LABS: Albumin Level 2.7 g/dL (3.5-5.1); Bilirubin,Total 1.9 mg/dL (0.2-1.3); Cholesterol 51 mg/dL (0-200); Glucose 68 mg/dL (65-105); Lactate Dehydrogenase 492 U/L (313-618); Triglycerides 46 mg/dL (<150)
[2020-08-08 12:05] LABS: Amylase 161 U/L (30-110)
[2020-08-08 12:05] LABS: Alanine Aminotransferase 32 U/L (4-35); Albumin Level 2.6 g/dL (3.5-5.1); Alkaline Phosphatase 70 U/L (38-126); Anion Gap 3 mmol/L (8-16); Aspartate Amino Transferase 56 U/L (14-36); Bilirubin,Total 1.8 mg/dL (0.2-1.3); Blood Urea Nitrogen 42 mg/dL (7-17); Carbon Dioxide 26 mmol/L (22-30); Chloride 105 mmol/L (98-107); Estimated CRCL calculation 30 ml/min; Estimated Glomerular Filt Rate 35; Glucose 66 mg/dL (65-105); Magnesium 2.1 mg/dL (1.6-2.3); Potassium 3.8 mmol/L (3.4-5.0); Sodium 134 mmol/L (137-145)
[2020-08-08 12:06] LABS: Ammonia 35 umol/L (9-30)
[2020-08-08 12:07] LABS: INR 1.7; Prothrombin Time 20.4 Seconds (11.1-14.7)
--- NOTE | 2020-08-08 14:53 | PM.IMPN ---
Progress Note: A&P Assessment and Plan (1) Septic shock: Code(s): A41.9 - Sepsis, unspecified organism; R65.21 - Severe sepsis with septic shock Status: Acute Assessment and Plan: Due to pneumonia (cannot rule out empyema) and or peritonitis. Blood cultures pending. Given presence of pneumonia patient has been swabbed for COVID testing. But COVID less likely given the patient's leukocytosis. Patient would benefit from a diagnostic and therapeutic paracentesis however, IR will not perform paracentesis with patient's INR 2. Vitamin K and FFP have been ordered. Thoracentesis would also be beneficial for both diagnostic and therapeutic purposes. The patient's blood pressures have improved with albumin and fluid resuscitation. She is no longer hypotensive. Continue broad-spectrum antibiotic with cefepime and Levaquin. 08/07/2020 patient is 64-year-old female was found by her family unresponsive unfortunately patient still was unable to provide any history review of symptom and patient is not been see in this facility so we have no record of past medical history it seems patient has a liver cirrhosis and ascites her INR was 2 and was unable to do paracentesis, is also found to have pleural effusion and again patient cannot have thoracentesis, patient was give FFP and vitmamin K, patient was found to be anemic hemoglobin 6.5 patient is given 2 units of pack RBC. I called [facility] for transfer the as patient has been seen at the geographic analyst Dr. Prater at the hospital, patient was accepted to be transferred however no beds are available, will continue to monitor. (2) Cirrhosis of liver with ascites: Qualifiers: Hepatic cirrhosis type: unspecified hepatic cirrhosis Qualified Code(s): K74.60 - Unspecified cirrhosis of liver; R18.8 - Other ascites Code(s): K74.60 - Unspecified cirrhosis of liver; R18.8 - Other ascites Status: Acute Assessment and Plan: Due to hepatitis-C with evidence of synthetic dysfunction. Patient received 1 unit of albumin yesterday. (3) Coagulopathy: Code(s): D68.9 - Coagulation defect, unspecified Status: Acute Assessment and Plan: The patient's INR hours as her baseline. However intervention radiology will not perform paracentesis or thoracentesis on the patient with her elevated INR. Will attempt to give patient 10 mg vitamin K subq and another unit of FFP. (4) Loculated pleural effusion: Code(s): J90 - Pleural effusion, not elsewhere classified Status: Acute Assessment and Plan: Due to cirrhosis versus underlying pneumonia or neoplastic process uncertain. Diagnostic and therapeutic thoracentesis has been ordered. (5) Hypoglycemia: Code(s): E16.2 - Hypoglycemia, unspecified Status: Acute Assessment and Plan: Currently resolved. Continue to monitor Accu-Cheks q.6 hours old p.o. with hypoglycemia protocol. (6) Anemia: Qualifiers: Anemia type: other cause Other causes of anemia: chronic disease, other Qualified Code(s): D63.8 - Anemia in other chronic diseases classified elsewhere Code(s): D64.9 - Anemia, unspecified Status: Acute Assessment and Plan: Her hemoglobin has dropped 1 g after volume resuscitation. Transfused 2 units of packed red blood cells. (7) Hypothyroidism: Qualifiers: Hypothyroidism type: acquired Qualified Code(s): E03.9 - Hypothyroidism, unspecified Code(s): E03.9 - Hypothyroidism, unspecified Status: Acute Assessment and Plan: Patient is not on thyroid medications at home. Will initiate IV levothyroxine 25 mcg daily. (8) Lactic acidosis: Code(s): E87.2 - Acidosis Status: Acute Assessment and Plan: Lactic acidosis likely multifactorial due to liver disease and septic shock. Lactic acid level is continuing to improve. (9) Elevated troponin: Code(s): R77.8 - Other specified abnorma
--- NOTE | 2020-08-08 15:15 | PM.IMPN ---
Progress Note: A&P Assessment and Plan (1) Septic shock: Code(s): A41.9 - Sepsis, unspecified organism; R65.21 - Severe sepsis with septic shock Status: Acute Assessment and Plan: Due to pneumonia (cannot rule out empyema) and or peritonitis. Blood cultures pending. Given presence of pneumonia patient has been swabbed for COVID testing. But COVID less likely given the patient's leukocytosis. Patient would benefit from a diagnostic and therapeutic paracentesis however, IR will not perform paracentesis with patient's INR 2. Vitamin K and FFP have been ordered. Thoracentesis would also be beneficial for both diagnostic and therapeutic purposes. The patient's blood pressures have improved with albumin and fluid resuscitation. She is no longer hypotensive. 08/08/20 15:23 patient is 64-year-old female was found by her family unresponsive unfortunately patient still was unable to provide any history review of symptom and patient is not been see in this facility so we have no record of past medical history it seems patient has a liver cirrhosis and ascites her INR was 2 and was unable to do paracentesis, is also found to have pleural effusion and again patient cannot have thoracentesis, patient was starte on Cefepime and vancomycin, patient was give FFP and vitmamin K, patient was found to be anemic hemoglobin 6.5 patient is given 2 units of pack RBC. later on 08/07 an attempt was made for paracentesis and patient was quite comabative and it was aborted, I called [facility] for transfer today again the as patient has been seen at the weather algorithm scientist Dr. Prater at the hospital, I spoke with Dr. Espinosa weather algorithm scientist fellow, beds are still not available, instructed to do paracentsis diagnostic, IR will attempts today, will follow up on finding and further recommendation to follow. Patient still quite somnolent unable to provide any review of symptom. (2) Cirrhosis of liver with ascites: Qualifiers: Hepatic cirrhosis type: unspecified hepatic cirrhosis Qualified Code(s): K74.60 - Unspecified cirrhosis of liver; R18.8 - Other ascites Code(s): K74.60 - Unspecified cirrhosis of liver; R18.8 - Other ascites Status: Acute Assessment and Plan: Due to hepatitis-C with evidence of synthetic dysfunction. Patient received 1 unit of albumin yesterday. (3) Coagulopathy: Code(s): D68.9 - Coagulation defect, unspecified Status: Acute Assessment and Plan: The patient's INR hours as her baseline. However intervention radiology will not perform paracentesis or thoracentesis on the patient with her elevated INR. Will attempt to give patient 10 mg vitamin K subq and another unit of FFP. (4) Loculated pleural effusion: Code(s): J90 - Pleural effusion, not elsewhere classified Status: Acute Assessment and Plan: Due to cirrhosis versus underlying pneumonia or neoplastic process uncertain. Diagnostic and therapeutic thoracentesis has been ordered. (5) Hypoglycemia: Code(s): E16.2 - Hypoglycemia, unspecified Status: Acute Assessment and Plan: Currently resolved. Continue to monitor Accu-Cheks q.6 hours old p.o. with hypoglycemia protocol. (6) Anemia: Qualifiers: Anemia type: other cause Other causes of anemia: chronic disease, other Qualified Code(s): D63.8 - Anemia in other chronic diseases classified elsewhere Code(s): D64.9 - Anemia, unspecified Status: Acute Assessment and Plan: Her hemoglobin has dropped 1 g after volume resuscitation. Transfused 2 units of packed red blood cells. (7) Hypothyroidism: Qualifiers: Hypothyroidism type: acquired Qualified Code(s): E03.9 - Hypothyroidism, unspecified Code(s): E03.9 - Hypothyroidism, unspecified Status: Acute Assessment and Plan: Patient is not on thyroid medications at home. Will initiate IV levothyroxine 25 mcg daily. (8) Lactic acidosis
[2020-08-08] MEDS: OLANZapine 10 MG INJ VIAL 2.5 MG IM (15:42)
--- NOTE | 2020-08-08 15:54 | PCRCNOTE ---
Window of time for administration has passed. See next scheduled administration.
[2020-08-08 17:05] LABS: pH Pleural Fluid 7.452 (7.210-7.500)
[2020-08-08] MEDS: DEXTROSE 50% 25 GM/50 ML SYRINGE IV PUSH (19:00)
[2020-08-08 19:51] LABS: Appearance Pleural Fluid Hazy (Clear); Color Pleural Fluid Yellow (Colorless); Pleural fluid source Pleural fluid
[2020-08-08 19:52] LABS: Nucleated Cell Pleural Fluid 2360 /uL (0-1000); RBC Pleural Fluid 10622 /uL (0-0)
[2020-08-08 19:53] LABS: Glucose Point of Care 96 (65-105)
[2020-08-08 19:55] LABS: Lymphocytes Pleural Fluid 19 %; Mesothelial Cells Pleural Flui 1 %; Monocytes Pleural Fluid 5 %; Neutrophils Pleural Fluid 75 % (0-25)
[2020-08-08] MEDS: ALTEPLASE 2 MG VIAL (CATHFLO) IV PUSH ×2 (21:28)
[2020-08-08 22:59] LABS: Glucose Point of Care 64 (65-105)
[2020-08-08 23:38] LABS: Vancomycin Trough 8.6 ug/mL (10.0-20.0)
[2020-08-09] VITALS (7 sets, daily range): BP systolic 89–123; BP diastolic 41–72; PULSE 58–97; RESP 24–40; TEMP 36–36.8; O2SAT 91–96
[2020-08-09 00:34] LABS: Glucose Point of Care 92 (65-105)
[2020-08-09 04:06] LABS: Hematocrit 28.9 % (37.0-47.0); Hemoglobin 9.5 g/dL (12.0-15.0); Mean Corpuscular HGB Conc 32.9 g/dl (32-36); Mean Corpuscular Hemoglobin 31.7 pg (26-34); Mean Corpuscular Volume 96.3 fl (80-100); Mean Platelet Volume 9.6 fl (7.4-10.4); Platelet Count Result 118 k/mm3 (150-375); Red Cell Distribution Width 18.4 % (11.5-14.5); White Blood Count 10.3 K/mm3 (4.5-10.0)
[2020-08-09 04:21] LABS: Ammonia 14 umol/L (9-30)
[2020-08-09 04:22] LABS: Alanine Aminotransferase 29 U/L (4-35); Albumin Level 2.3 g/dL (3.5-5.1); Alkaline Phosphatase 67 U/L (38-126); Anion Gap 3 mmol/L (8-16); Aspartate Amino Transferase 46 U/L (14-36); Bilirubin,Total 1.7 mg/dL (0.2-1.3); Blood Urea Nitrogen 38 mg/dL (7-17); Calcium 7.9 mg/dL (8.4-10.2); Carbon Dioxide 25 mmol/L (22-30); Chloride 108 mmol/L (98-107); Estimated CRCL calculation 34 ml/min; Estimated Glomerular Filt Rate 41; Glucose 72 mg/dL (65-105); Potassium 3.6 mmol/L (3.4-5.0); Sodium 136 mmol/L (137-145)
[2020-08-09] MEDS: CENTRAL LINE FLUSH 10 ML IV PUSH (05:17)
[2020-08-09 05:25] LABS: Glucose Point of Care 79 (65-105)
[2020-08-09] MEDS: PANTOPRAZOLE SODIUM IV 40 MG VIAL IV PUSH (08:59)
[2020-08-09] MEDS: LACTULOSE 20 GM/30 ML UDC 6.667 GM PO (09:02)
[2020-08-09] MEDS: ALBUTEROL SULFATE NEB 2.5 MG/0.5 ML INH INHALATION (09:42)
[2020-08-09 11:53] LABS: Glucose Point of Care 66 (65-105)
[2020-08-09] MEDS: DEXTROSE 50% 25 GM/50 ML SYRINGE IV PUSH (11:54)
[2020-08-09 12:33] LABS: Glucose Point of Care 87 (65-105)
--- NOTE | 2020-08-09 15:20 | PCRCNOTE ---
pt and family with hospice team.
--- NOTE | 2020-08-09 15:43 | PM.DS ---
DS: Admitting Diagnosis Admitting Diagnosis Admitting Diagnosis: Septic Shock, Pneumonia, Anemia, AMS DS: Discharge Diagnosis Discharge Diagnosis (1) Septic shock: Code(s): A41.9 - Sepsis, unspecified organism; R65.21 - Severe sepsis with septic shock Status: Acute Assessment and Plan: Due to pneumonia (cannot rule out empyema) and or peritonitis. Blood cultures pending. Given presence of pneumonia patient has been swabbed for COVID testing. But COVID less likely given the patient's leukocytosis. Patient would benefit from a diagnostic and therapeutic paracentesis however, IR will not perform paracentesis with patient's INR 2. Vitamin K and FFP have been ordered. Thoracentesis would also be beneficial for both diagnostic and therapeutic purposes. The patient's blood pressures have improved with albumin and fluid resuscitation. She is no longer hypotensive. 08/08/20 15:23 patient is 64-year-old female was found by her family unresponsive unfortunately patient still was unable to provide any history review of symptom and patient is not been see in this facility so we have no record of past medical history it seems patient has a liver cirrhosis and ascites her INR was 2 and was unable to do paracentesis, is also found to have pleural effusion and again patient cannot have thoracentesis, patient was starte on Cefepime and vancomycin, patient was give FFP and vitmamin K, patient was found to be anemic hemoglobin 6.5 patient is given 2 units of pack RBC. later on 08/07 an attempt was made for paracentesis and patient was quite comabative and it was aborted, I called [facility] for transfer today again the as patient has been seen at the [facility]. Prater at the hospital, I spoke with Dr. Espinosa contract clerk [employer] fellow, beds are still not available, instructed to do paracentsis diagnostic, IR will attempts today, will follow up on finding and further recommendation to follow. Patient still quite somnolent unable to provide any review of symptom. (2) Cirrhosis of liver with ascites: Qualifiers: Hepatic cirrhosis type: unspecified hepatic cirrhosis Qualified Code(s): K74.60 - Unspecified cirrhosis of liver; R18.8 - Other ascites Code(s): K74.60 - Unspecified cirrhosis of liver; R18.8 - Other ascites Status: Acute Assessment and Plan: Due to hepatitis-C with evidence of synthetic dysfunction. Patient received 1 unit of albumin yesterday. (3) Coagulopathy: Code(s): D68.9 - Coagulation defect, unspecified Status: Acute Assessment and Plan: The patient's INR hours as her baseline. However intervention radiology will not perform paracentesis or thoracentesis on the patient with her elevated INR. Will attempt to give patient 10 mg vitamin K subq and another unit of FFP. (4) Loculated pleural effusion: Code(s): J90 - Pleural effusion, not elsewhere classified Status: Acute Assessment and Plan: Due to cirrhosis versus underlying pneumonia or neoplastic process uncertain. Diagnostic and therapeutic thoracentesis has been ordered. (5) Hypoglycemia: Code(s): E16.2 - Hypoglycemia, unspecified Status: Acute Assessment and Plan: Currently resolved. Continue to monitor Accu-Cheks q.6 hours old p.o. with hypoglycemia protocol. (6) Anemia: Qualifiers: Anemia type: other cause Other causes of anemia: chronic disease, other Qualified Code(s): D63.8 - Anemia in other chronic diseases classified elsewhere Code(s): D64.9 - Anemia, unspecified Status: Acute Assessment and Plan: Her hemoglobin has dropped 1 g after volume resuscitation. Transfused 2 units of packed red blood cells. (7) Hypothyroidism: Qualifiers: Hypothyroidism type: acquired Qualified Code(s): E03.9 - Hypothyroidism, unspecified Code(s): E03.9 - Hypothyroidism, unspecified Status: Acute Assessment and Plan:
--- NOTE | 2020-08-09 16:09 | PC.NURSE ---
Pt being discharged to inpatient hospice with [facility].
[2020-08-12 07:17] LABS: LDH Pleural Fluid 66 U/L; Total Protein Pleural Fluid <3.0 g/dL
[2020-08-13 11:40] LABS: Glucose Pleural Fluid 70 mg/dL
[2020-08-13 15:01] LABS: Albumin Pleural Fluid 0.4 g/dL
[2020-08-14 00:13] LABS: Amylase, Pleural Fluid 20 U/L
[2020-08-15 09:08] LABS: Glucose Point of Care 36 (65-105)
== END 2020-08-09 16:07 | disposition hospice, inpatient (51) | DRG 720 ==
LOC: ANHED 19:59 → ANH3MED 08-08 10:54 → ANHIMU 08-12 14:43
PROVIDERS: Internal Medicine; Physician Assistant; Admitting Provider Student in an Organized Health Care Education/Training Program; Emergency Provider Emergency Medicine; Visit Provider Family Medicine
DX: A41.9 Sepsis, unspecified organism (principal); G93.41 Metabolic encephalopathy; R65.21 Severe sepsis with septic shock; N17.9 Acute kidney failure, unspecified; E87.2 Acidosis; J18.9 Pneumonia, unspecified organism; J91.8 Pleural effusion in other conditions classified elsewhere; K74.69 Other cirrhosis of liver; R18.8 Other ascites; B19.20 Unspecified viral hepatitis C without hepatic coma; Z20.828 Contact with and (suspected) exposure to other viral communicable diseases; R79.1 Abnormal coagulation profile; D63.8 Anemia in other chronic diseases classified elsewhere; E03.9 Hypothyroidism, unspecified; R77.8 Other specified abnormalities of plasma proteins; E16.2 Hypoglycemia, unspecified; Z79.899 Other long term (current) drug therapy
CPT/HCPCS: 32555; 36415; 36430; 36569; 36600; 49083; 51702; 70450; 71045; 71260; 80048; 80053; 80202; 80307; 81001; 82040; 82042; 82140; 82150; 82247; 82375; 82465; 82550; 82565; 82805; 82945; 82947; 82948; 83050; 83605; 83615; 83735; 83880; 83986; 84100; 84155; 84157; 84311; 84439; 84443; 84478; 84480; 84484; 85025; 85027; 85610; 85730; 86140; 86850; 86900; 86901; 86923; 87015; 87040; 87070; 87075; 87077; 87102; 87116; 87186; 87205; 87206; 87635; 88104; 88108; 88184; 88305; 89051; 93005; 94640; 96365; 96366; 96367; 96372; 96375; 99291; A9270; C1751; C9113; C9803; G0379; J0692; J1610; J1956; J2310; J2997; J3370; J3411; J7030; J7050; P9016; P9017; P9047; Q9967; U0003

== ENCOUNTER 2020-08-09 16:17 | HOS | payer OTHER, SELFPAY ==
[2020-08-09] MEDS: MORPHINE SULFATE INJ (*CRX) 50 MG in SODIUM CHLORIDE 0.9% IV 95 ML IV CONT (18:48)
--- NOTE | 2020-08-10 17:39 | PM.IMHP ---
H&P: HPI History of Present Illness Date/Time: 08/10/20 17:39 Chief complaint: Sepsis Narrative: Venancio Li is a 64 year old female with known cirrhosis was found unresponsive by facility staff. EMS transported to [facility] where she was found to have pneumonia, septic shock, and hepatic failure. INR was 2. Treated with cefepime and vancomycin. Unable to obtain paracentesis or thoracentesis due to coagulopathy. Son opted for comfort care. Patient had uncontrolled dyspnea and restlessness 08/09. Comfortable since initiation of morphine drip, except when stimulated with speech or movement. 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 No emergency contact information is in the chart. Alcohol intake: unknown Substance use: unknown Gender identity (if verbalized by the patient): Female Spiritual care concerns: No Meds Home Medications and Allergies Home Medications Medication Instructions Recorded Confirmed Type cyclobenzaprine 10 mg HS 08/06/20 08/06/20 History lactulose 10 ml PO TID 08/06/20 08/06/20 History midodrine 10 mg PO TID 08/06/20 08/06/20 History sulfamethoxazole-trimethoprim 1 tablet PO DAILY 08/06/20 08/06/20 History Allergies Allergy/AdvReac Type Severity Reaction Status Date / Time Unable to Assess Allergy Verified 08/05/20 15:36 Exam Narrative: Exam Narrative: HEENT: dry with fissureing NECK: No JVD CHEST: Coarse BS, scattered coarse crackles HEART: NL S1/S2, regular, no murmur ABDOMEN: BS hypoactive, protuberant, soft, nontender EXTREMITIES: Severe edema with weeping of bilateral LEs NEUROLOGIC: CN intact and symmetric to inspection. MUSCULOSKELETAL: Tone and strength symmetric. PSYCH: Sleeping. Responds to noxious stimuli. Assessment and Plan Assessment and plan (1) Palliative care by specialist: Code(s): Z51.5 - Encounter for palliative care Status: Acute Assessment and Plan: Meets GIP criteria due to requirement for continuous IV narcotics to control dyspnea and restlessness (2) Cirrhosis of liver with ascites: Qualifiers: Hepatic cirrhosis type: unspecified hepatic cirrhosis Qualified Code(s): K74.60 - Unspecified cirrhosis of liver; R18.8 - Other ascites Code(s): K74.60 - Unspecified cirrhosis of liver; R18.8 - Other ascites Status: Acute (3) Metabolic encephalopathy: Code(s): G93.41 - Metabolic encephalopathy Status: Acute (4) Severe sepsis: Code(s): A41.9 - Sepsis, unspecified organism; R65.20 - Severe sepsis without septic shock Status: Acute (5) Pneumonia: Qualifiers: Laterality: unspecified laterality Lung location: unspecified part of lung Pneumonia type: due to unspecified organism Qualified Code(s): J18.9 - Pneumonia, unspecified organism Code(s): J18.9 - Pneumonia, unspecified organism Status: Acute (6) Abdominal ascites: Qualifiers: Ascites type: other type Qualified Code(s): R18.8 - Other ascites Code(s): R18.8 - Other ascites Status: Acute (7) Loculated pleural effusion: Code(s): J9
[2020-08-10] MEDS: MORPHINE SULFATE INJ (*CRX) 50 MG in SODIUM CHLORIDE 0.9% IV 95 ML IV CONT (17:55)
[2020-08-11 04:05] VITALS: BP 77/34; PULSE 99; TEMP 36.1; O2SAT 91
[2020-08-11 08:00] VITALS: PULSE 99; RESP 20; O2SAT 91
[2020-08-11 09:43] VITALS: O2SAT 91
--- NOTE | 2020-08-11 16:45 | PC.NURSE ---
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
--- NOTE | 2020-08-12 14:37 | P.DN_ITS ---
Discharge Sum: Prov Provider Primary care physician: UNKNOWN,DOCTOR Admitting provider: Shiraz Morales MD Discharge Sum: Diag Contributing Factors (1) Severe sepsis: (2) Pneumonia: (3) Cirrhosis of liver with ascites: (4) Loculated pleural effusion: Discharge Sum: Summary Date and Time Date of admission: 08/09/20 16:17 Summary Details: Venancio Li is a 64 year old female with known cirrhosis was found unresponsive by facility staff. EMS transported to [facility] where she was found to have pneumonia, septic shock, and hepatic failure. INR was 2. Treated with cefepime and vancomycin. Unable to obtain paracentesis or thoracentesis due to coagulopathy. Son opted for comfort care. Patient had uncontrolled dyspnea and restlessness 08/09. She remained comfortable after initiation of morphine drip, except when stimulated with speech or movement. She peacefully. Additional Data Attending physician: Shiraz Morales MD
== END 2020-08-11 20:51 | disposition expired | DRG 951 ==
PROVIDERS: Admitting Provider Internal Medicine; Visit Provider Internal Medicine
DX: Z51.5 Encounter for palliative care (principal); R65.21 Severe sepsis with septic shock; A41.9 Sepsis, unspecified organism; G93.41 Metabolic encephalopathy; J18.9 Pneumonia, unspecified organism; R18.8 Other ascites; J90 Pleural effusion, not elsewhere classified; J44.0 Chronic obstructive pulmonary disease with (acute) lower respiratory infection; K74.60 Unspecified cirrhosis of liver; B19.20 Unspecified viral hepatitis C without hepatic coma; Z87.891 Personal history of nicotine dependence
CPT/HCPCS: A9270; J2270